=== PATIENT | female | born 1970 | race Caucasian/White ===

== ENCOUNTER 2019-01-13 18:48 | Inpatient (IN) ==
[2019-01-13 19:27] LABS: Bilirubin,Urine Negative (Negative); Blood,Urine Negative (Negative); Clarity,Urine Clear (Clear); Color,Urine Yellow (Yellow); Glucose,Urine (UA) Normal (Normal); Ketones,Urine Trace mg/dL (Negative); Leukocyte Esterase,Urine Negative (Negative); Nitrite,Urine Negative (Negative); Protein,Urine Trace mg/dL (Neg-Trace); Specific Gravity,Urine 1.027 (1.010-1.025); Urobilinogen,Urine Normal (Normal)
[2019-01-13] MEDS ORDERED: 0.9 % Sodium Chloride 1,000 ML IVC ONE (19:45)
[2019-01-13] MEDS ORDERED: Ondansetron 4 MG/2 ML VIAL IVP ONE (19:45)
[2019-01-13] MEDS ORDERED: *HR* FentaNYL (PF) 100 MCG/2 ML VIAL IVP ONE (19:51)
--- NOTE | 2019-01-13 19:54 | Emergency Department Note ---
Disposition Clinical Impression: Ileus, postoperative, Nausea alone Disposition: Admitted As Inpatient Condition: Undetermined Referrals: Jesi Steward CNP [Primary Care Provider] - Forms: ED Satisfaction Letter, Work/School Release Time of Disposition: 22:05 Abdominal Pain HPI - General Chief Complaint: ED Abdominal Pain Stated Complaint: ABD Pain,S/P Sinus Surgery Time Seen by Provider: 01/13/19 19:29 Source: patient Mode of arrival: ambulatory Limitations: no limitations Nursing Notes Reviewed: Yes Vital Signs Reviewed: Yes - History of Present Illness HPI Narrative: 48-year-old female with history of partial colectomy and J pouch arrives to the emergency department 3 days status post sinus surgery who arrives to the emergency department complaining of worsening abdominal pain. The patient states that she has had a similar episode like this in the past and had a anesthesia-induced ileus. The patient states that she is had only one liquid bowel movement since her surgery. Patient is had numerous episodes of nausea and only one episode of vomiting. The patient is very uncomfortable on evaluation the room with a very tender abdomen. It is not rigid and is still soft but she is exquisitely tender. It is not pain out of proportion the patient has no rigidity, rebound or guarding noted. Patient is a very large midline scar in her abdomen secondary to her J pouch. Pain Scale: 10 - Related Data Home Medications Medication Instructions Recorded Confirmed Fluticasone Propionate Nasal 2 spr NS BID PRN 10/11/18 01/13/19 [Flonase] Montelukast [Singulair] 10 mg PO DAILY 10/11/18 01/13/19 Previous Rx's Medication Instructions Recorded Amoxicillin [Amoxil] 500 mg PO BID #14 capsule 01/11/19 HYDROcodone/Acet 5/325 mg [[place] 1 tab PO Q6H PRN 3 Days #10 tab 01/11/19 5-325 mg] Allergies Allergy/AdvReac Type Severity Reaction Status Date / Time No Known Allergies Allergy Verified 01/13/19 19:49 All systems ED: reviewed and negative except as stated. Constitutional: Reports: chills. Denies: fever, weakness ENT ED: Denies: dysphagia Cardiovascular: Denies: chest pain Respiratory: Denies: dyspnea Gastrointestinal: Reports: abdominal pain, nausea, vomiting, diarrhea. Denies: constipation, hematemesis, melena, hematochezia Genitourinary: Denies: urgency, dysuria, hematuria Musculoskeletal: Denies: back pain Integumentary: Denies: rash Neurological: Denies: headache Abdominal Pain PMH - Past Medical History Medical history: Reports: other Female Surgical History: Reports: colectomy, other (J pouch) Psychiatric history: Reports: depression - Social History Smoking status: Never smoker Alcohol use: Reports: none Drug use: Reports: none Physical Exam - General Limitations: no limitations General appearance: alert, in distress (secondary to pain) - Head Head exam: atraumatic, normocephalic, normal inspection - Eye Eye exam: Present: normal appearance, PERRL, EOMI - ENT ENT exam: normal exam, normal oropharynx, mucous membranes moist - Neck Neck exam: Present: normal inspection, full ROM, trachea midline - Chest Chest inspection: Present: normal inspection, symmetric chest wall rise - Respiratory Respiratory exam: Present: normal lung sounds bilaterally - Cardiovascular Cardiovascular exam: Present: regular rate, normal rhythm, normal heart sounds - Abdominal Exam Abdominal exam: Present: soft, tenderness (diffuse), distention, scar. Absent: guarding, rebound, rigidity, Hammer's sign, Rovsing's sign, tenderness at McBurney's Point - Extremities Exam Extremities exam: Present: normal inspection, full ROM, normal capillary refill. Absent: tenderness, pedal edema - Neurological Exam Neurological exam: Present: alert, oriented X3 - Skin Skin exam: Present: warm, dry, intact, normal color Course - Consultations Consultation #1: I spoke with Dr. Pierre in general surgery who is on-call he felt as though this patient likely just has an ileus given the patient having still having some diarrhea. The patient is still expressing decent amount of pain at this time and given the patient's pain combined with concern for ileus versus small bowel obstruction, we will admit the patient to the hospital for further observation and care. General surgery also noted that given the dilation it can be a normal finding secondary to J-pouch surgery. Patient was made aware and is otherwise in the room at this time. Patient will be admitted to the hospital. Time: 21:52 Vital Signs Temperature 98.3 F 01/13/19 18:52 Pulse Rate 95 01/13/19 18:52 Respiratory Rate 18 01/13/19 18:52 Blood Pressure 152/98 01/13/19 18:52 O2 Sat by Pulse Oximetry 98 01/13/19 18:52 Temperature 98.3 F 01/13/19 19:53 Pulse Rate 90 01/13/19 19:53 Respiratory Rate 20 01/13/19 19:53 Blood Pressure 144/93 01/13/19 19:53 O2 Sat by Pulse Oximetry 100 01/13/19 19:53 Oxygen Delivery Oxygen Delivery Room Air Abdominal Pain - MDM Narrative Medical decision making narrative: Accepted by Dr. Sung. - Lab Data Lab results reviewed: Yes I reviewed the patient's lab results. Result diagrams: 01/13/19 18:56 01/13/19 18:56 Lab Results 01/13/19 01/13/19 01/13/19 Range/Units 18:56 18:56 19:08 WBC 12.2 H (4.3-11.1) K/mcL RBC 4.93 (3.82-4.97) M/mcL Hgb 13.9 (11.5-15.4) g/dL Hct 42.7 (35.3-44.9) % MCV 86.6 (83.0-100.0) fL MCH 28.2 (28.0-33.3) pg MCHC 32.6 (31.6-35.5) g/dL RDW 14.2 (11.5-14.5) % Plt Count 314 (140-400) K/mcL MPV 9.2 L (9.4-12.4) fL Immature Gran % 0.2 (0-4) % Seg Neutrophils % 74.6 % Lymphocytes % 17.1 % Monocytes % 5.8 % Eosinophils % 1.6 % Basophils % 0.7 % Neutrophils # 9.1 H (1.6-8.9) K/mcL Lymphocytes # 2.1 (0.6-4.6) K/mcL Monocytes # 0.7 (0.0-1.3) K/mcL Eosinophils # 0.2 (0.0-0.6) K/mcL Basophils # 0.1 (0.0-0.2) K/mcL Sodium 140 (136-145) mEq/L Potassium 3.8 (3.5-5.1) mEq/L Chloride 100 (98-107) mEq/L Carbon Dioxide 27 (23-29) mEq/L BUN 9 (6-20) mg/dL Creatinine 0.55 L (0.60-1.20) mg/dL Est GFR ( Amer) > 60 (> 60) Est GFR (Non-Af Amer) > 60 (> 60) BUN/Creatinine Ratio 16 (6-26) Glucose 125 H (70-105) mg/dL Calculated Osmolality 290 (280-300) Calcium 10.1 (8.6-10.3) mg/dL Total Bilirubin 0.7 (0.3-1.0) mg/dL Direct Bilirubin 0.1 (0.0-0.2) mg/dL Indirect Bilirubin 0.6 (0.0-1.2) mg/dL AST 40 H (13-39) Units/L ALT 54 H (7-52) Units/L Alkaline Phosphatase 77 (34-104) Units/L Serum Total Protein 7.6 (6.4-8.9) g/dL Albumin 4.6 (3.5-5.7) g/dL Globulin 3.0 (2.4-3.5) g/dL Albumin/Globulin Ratio 1.5 (1.1-2.2) Lipase 5 L (11-82) Units/L Urine Color Yellow (Yellow) Urine Clarity Clear (Clear) Urine pH 7.0 (5.0-8.0) pH Units Ur Specific [place] 1.027 H (1.010-1.025) Urine Protein Trace (Neg-Trace) mg/dL Urine Glucose (UA) Normal (Normal) mg/dL Urine Ketones Trace H (Negative) mg/dL Urine Blood Negative (Negative) Urine Nitrite Negative (Negative) Urine Bilirubin Negative (Negative) Urine Urobilinogen Normal (Normal) mg/dL Ur Leukocyte Esterase Negative (Negative) Ur Culture Indicated? NO (NO) - Radiology Data Radiology results reviewed: Yes I reviewed the patient's radiology results. Abdomen/Pelvis CT 01/13/19 19:45 IMPRESSION: 1. Postoperative changes of colectomy. Findings are suspicious for a partial distal small-bowel obstruction. 2. Trace ascites and mild mesenteric edema, which is nonspecific. 3. Urine in the bladder appears hyperdense, which can be seen with hematuria. D/ / 01/13/2019 21:47:23 Dada Vizcaino MD / marilyn Interpreting Provider: Dada Vizcaino MD Chest X-Ray 01/13/19 20:49 IMPRESSION: No acute cardiopulmonary disease. D/ / Robbin Parmar MD / Robbin Parmar MD Interpreting Provider: Robbin Pramar MD - EKG Data EKG attestation: Yes I reviewed and interpreted this EKG. EKG results narrative: Heart rate 73 beats for minute. Normal sinus rhythm. No ST elevation or ST depression noted. No acute changes noted. Attestation Statement - Attestation Attestation: I, Vance Navas DO, examined this patient [id number] and my medical decision-making was reviewed with Lorraine Guillaume DO, Resident Physician. I agree with the documented findings, disposition and treatment plan as described except to the extent set forth below. I personally supervised and was present for the bills/critical portions of the procedures completed by the resident documented below. Please see my progress notes for details.
[2019-01-13 20:14] LABS: Basophils # 0.1 K/mcL (0.0-0.2); Basophils % 0.7 %; Eosinophils # 0.2 K/mcL (0.0-0.6); Eosinophils % 1.6 %; Hematocrit 42.7 % (35.3-44.9); Hemoglobin 13.9 g/dL (11.5-15.4); Immature Granulocytes % 0.2 % (0-4); Lymphocytes # 2.1 K/mcL (0.6-4.6); Lymphocytes % 17.1 %; Mean Corpuscular HGB Conc 32.6 g/dL (31.6-35.5); Mean Corpuscular Hemoglobin 28.2 pg (28.0-33.3); Mean Corpuscular Volume 86.6 fL (83.0-100.0); Mean Platelet Volume 9.2 fL (9.4-12.4); Monocytes # 0.7 K/mcL (0.0-1.3); Monocytes % 5.8 %; Neutrophils # 9.1 K/mcL (1.6-8.9); Platelet Count 314 K/mcL (140-400); Red Blood Count 4.93 M/mcL (3.82-4.97); Red Cell Distribution Width 14.2 % (11.5-14.5); Segmented Neutrophils % 74.6 %
[2019-01-13 20:37] LABS: Alanine Aminotransferase 54 Units/L (7-52); Albumin 4.6 g/dL (3.5-5.7); Albumin/Globulin Ratio 1.5 (1.1-2.2); Alkaline Phosphatase 77 Units/L (34-104); Aspartate Amino Transferase 40 Units/L (13-39); BUN/Creatinine Ratio 16 (6-26); Bilirubin,Direct 0.1 mg/dL (0.0-0.2); Bilirubin,Indirect 0.6 mg/dL (0.0-1.2); Bilirubin,Total 0.7 mg/dL (0.3-1.0); Blood Urea Nitrogen 9 mg/dL (6-20); Calcium 10.1 mg/dL (8.6-10.3); Carbon Dioxide 27 mEq/L (23-29); Chloride 100 mEq/L (98-107); Glucose 125 mg/dL (70-105); Lipase 5 Units/L (11-82); Osmolality,Calculated 290 (280-300); Potassium 3.8 mEq/L (3.5-5.1); Sodium 140 mEq/L (136-145); Total Protein 7.6 g/dL (6.4-8.9); eGFR For Non-African Americans > 60 (> 60)
--- NOTE | 2019-01-13 20:40 | Emergency Department Note ---
Disposition Clinical Impression: Ileus, postoperative, Nausea alone, Abdominal pain Disposition: Admitted As Inpatient Condition: Fair Referrals: Jesi Steward CNP [Primary Care Provider] - Forms: ED Satisfaction Letter, Work/School Release Time of Disposition: 22:15 General Adult HPI - General Chief complaint: ED Abdominal Pain Stated complaint: ABD Pain,S/P Sinus Surgery Time Seen by Provider: 01/13/19 19:29 Source: patient Mode of arrival: ambulatory Limitations: no limitations - History of Present Illness Pain Scale: 9 - Related Data Home Medications Medication Instructions Recorded Confirmed Fluticasone Propionate Nasal 2 spr NS BID PRN 10/11/18 01/13/19 [Flonase] Montelukast [Singulair] 10 mg PO DAILY 10/11/18 01/13/19 Previous Rx's Medication Instructions Recorded Amoxicillin [Amoxil] 500 mg PO BID #14 capsule 01/11/19 HYDROcodone/Acet 5/325 mg [[place] 1 tab PO Q6H PRN 3 Days #10 tab 01/11/19 5-325 mg] Allergies Allergy/AdvReac Type Severity Reaction Status Date / Time No Known Allergies Allergy Verified 01/13/19 19:49 Constitutional: Reports: chills. Denies: fever, weakness ENT ED: Denies: dysphagia Cardiovascular: Denies: chest pain Respiratory: Denies: dyspnea Gastrointestinal: Reports: abdominal pain, nausea, vomiting, diarrhea. Denies: constipation, hematemesis, melena, hematochezia Genitourinary: Denies: urgency, dysuria, hematuria Musculoskeletal: Denies: back pain Integumentary: Denies: rash Neurological: Denies: headache Past Medical History - Past Medical History Medical history: Reports: other Surgical history: Reports: hysterectomy, other Psychiatric history: Reports: depression - Social History Smoking Status: Never smoker Smokeless Tobacco Status: No Alcohol use: Reports: none Drug use: Reports: none Physical Exam - General Limitations: no limitations General appearance: alert, in distress (secondary to pain) Course Vital Signs Temperature 98.3 F 01/13/19 18:52 Pulse Rate 95 01/13/19 18:52 Respiratory Rate 18 01/13/19 18:52 Blood Pressure 152/98 01/13/19 18:52 O2 Sat by Pulse Oximetry 98 01/13/19 18:52 Temperature 98.3 F 01/13/19 19:53 Pulse Rate 90 01/13/19 19:53 Respiratory Rate 20 01/13/19 19:53 Blood Pressure 144/93 01/13/19 19:53 O2 Sat by Pulse Oximetry 100 01/13/19 19:53 Oxygen Delivery Oxygen Delivery Room Air Medical Decision Making - Lab Data Result diagrams: 01/13/19 18:56 01/13/19 18:56 Lab Results 01/13/19 01/13/19 01/13/19 Range/Units 18:56 18:56 19:08 WBC 12.2 H (4.3-11.1) K/mcL RBC 4.93 (3.82-4.97) M/mcL Hgb 13.9 (11.5-15.4) g/dL Hct 42.7 (35.3-44.9) % MCV 86.6 (83.0-100.0) fL MCH 28.2 (28.0-33.3) pg MCHC 32.6 (31.6-35.5) g/dL RDW 14.2 (11.5-14.5) % Plt Count 314 (140-400) K/mcL MPV 9.2 L (9.4-12.4) fL Immature Gran % 0.2 (0-4) % Seg Neutrophils % 74.6 % Lymphocytes % 17.1 % Monocytes % 5.8 % Eosinophils % 1.6 % Basophils % 0.7 % Neutrophils # 9.1 H (1.6-8.9) K/mcL Lymphocytes # 2.1 (0.6-4.6) K/mcL Monocytes # 0.7 (0.0-1.3) K/mcL Eosinophils # 0.2 (0.0-0.6) K/mcL Basophils # 0.1 (0.0-0.2) K/mcL Sodium 140 (136-145) mEq/L Potassium 3.8 (3.5-5.1) mEq/L Chloride 100 (98-107) mEq/L Carbon Dioxide 27 (23-29) mEq/L BUN 9 (6-20) mg/dL Creatinine 0.55 L (0.60-1.20) mg/dL Est GFR ( Amer) > 60 (> 60) Est GFR (Non-Af Amer) > 60 (> 60) BUN/Creatinine Ratio 16 (6-26) Glucose 125 H (70-105) mg/dL Calculated Osmolality 290 (280-300) Calcium 10.1 (8.6-10.3) mg/dL Total Bilirubin 0.7 (0.3-1.0) mg/dL Direct Bilirubin 0.1 (0.0-0.2) mg/dL Indirect Bilirubin 0.6 (0.0-1.2) mg/dL AST 40 H (13-39) Units/L ALT 54 H (7-52) Units/L Alkaline Phosphatase 77 (34-104) Units/L Serum Total Protein 7.6 (6.4-8.9) g/dL Albumin 4.6 (3.5-5.7) g/dL Globulin 3.0 (2.4-3.5) g/dL Albumin/Globulin Ratio 1.5 (1.1-2.2) Lipase 5 L (11-82) Units/L Urine Color Yellow (Yellow) Urine Clarity Clear (Clear) Urine pH 7.0 (5.0-8.0) pH Units Ur Specific [place] 1.027 H (1.010-1.025) Urine Protein Trace (Neg-Trace) mg/dL Urine Glucose (UA) Normal (Normal) mg/dL Urine Ketones Trace H (Negative) mg/dL Urine Blood Negative (Negative) Urine Nitrite Negative (Negative) Urine Bilirubin Negative (Negative) Urine Urobilinogen Normal (Normal) mg/dL Ur Leukocyte Esterase Negative (Negative) Ur Culture Indicated? NO (NO) Attestation Statement - Attestation Attestation: I, Vance Navas DO, examined this patient [id number] and my medical decision-making was reviewed with Lorraine Guillaume DO, Resident Physician. I agree with the documented findings, disposition and treatment plan as described except to the extent set forth below. I personally supervised and was present for the bills/critical portions of the procedures completed by the resident documented below. Please see my progress notes for details. 48-year-old female presents emergency room for evaluation of diffuse abdominal pain. Patient has had pain and symptoms for approximately 24 hours. She did have a nasal procedure performed more she went under general anesthetic several days ago. She has a history of having post anesthetic induced ileus. Patient has required hospitalization secondary to decreased stool output as well as possible obstruction. She denies any falls trauma or injury. Currently denying fevers or chills. She has had nausea but no vomiting. Denies any headache or vision change. She does not have any chest pain or shortness of breath. Nasal surgery appears to be intact with no complications. Head is atraumatic. Patient is a headache at this time secondary to the pain and discomfort. Oropharynx is patent. Trachea is midline. Bilateral nostrils appear to be stable no signs of septal hematoma or infection or abnormality. Lungs are c lear. Heart is regular. Abdomen is soft but she does have tenderness. No point tenderness guarding or rigidity noted. No peritoneal symptoms. Patient denies any vaginal discharge or bleeding. Denies any changes in her bowel output outside of she has had decreased stooling over the last several days. Patient will be provided with fluids pain medication nausea medication here. EKG chest x-ray and CT imaging of the abdomen will be collected. Screening labs will also be ordered. Disposition pending full workup and treatment course. Patient is otherwise clinically stable. 2200 CT read is concerning for ileus versus partial small bowel traction. The on- call surgeon Dr. Pierre reviewed the case and agreed with the described presentation. He does not feel a surgical consult is needed this point considering the patient is not having profound emesis in the CT imaging does not show any acute signs of obstruction at this point. He is happy for reconsultation in the inpatient setting at the patient has change in the presentation. The hospitalist Dr. hammond reviewed the case. No other questions or concerns are noted this time. Patient will be admitted for monitoring. He understands the patient does not have a nasogastric tube secondary to lack of symptoms as well as the most recent rhinoplasty completed by the urinalysis and throat physician. Patient is otherwise clinically stable and monitored here in the emergency department until admission process is completed. Pain medication as been provided as well secondary the patient's discomfort. Escalating doses have been provided.
[2019-01-13] MEDS ORDERED: *HR* Morphine 2 MG/ML SYRINGE IVP ONE (21:44)
[2019-01-14] MEDS ORDERED: Naloxone 0.4 MG/ML INJ IVP PRN ×2 (00:49→04:56)
[2019-01-14] MEDS ORDERED: OXYCODONE Oral CONC 10 MG/0.5 ML ORAL.SYG SL PRN (00:49)
[2019-01-14] MEDS: OXYCODONE Oral CONC 10 MG/0.5 ML ORAL.SYG SL PRN ×2 (00:57→05:18)
[2019-01-14] MEDS ORDERED: Albuterol 2.5 MG/3 ML NEBULIZER IH PRN (05:00)
[2019-01-14] MEDS: 0.9 % Sodium Chloride w KCl 20 MEQ/1,000 ML MLS IVC SCH ×2 (05:22→15:02)
[2019-01-14] MEDS: *HR* Heparin 5,000 UNIT/ML VIAL SQ SCH ×2 (05:22→18:09)
[2019-01-14] MEDS: Ampicillin/Sulbactam 1,500 MG in 0.9 % Sodium Chloride Mini Bag 100 ML IVPB SCH ×3 (05:22→18:10)
--- NOTE | 2019-01-14 05:44 | Internal Med History&Physical ---
Date of Encounter: 01/14/19 Time of Encounter: 04:55 Internal Medicine - H&P: HPI Chief complaint: abdominal pain, nausea Admitted From: Emergency Dept Plans for Post Hospital Care: Home History of present illness: Ms. Lyon is a 48 year old female who presents the ER with complaints of abdominal pain, distention, and protracted nausea with occasional vomiting. Symptoms started shortly after she had surgery 2 days ago on her sinuses. She often has postoperative ileus and/or obstruction after anesthesia. She the refore came to the ER where she was diagnosed with partial small bowel obstruction versus ileus. She was unable to receive an NG tube due to sinus surgery. She was therefore admitted to hospitalist service with consultation from surgery. Upon my assessment of the patient, she is complaining of pain and distention of abdomen. She has had some nausea, belching, and one bout of emesis since admis courtney. She is not passing any flatus. She did have 1 small little liquid stool earlier. She denies any fevers, chills or night sweats. Past Med Surg Social Fam HX - Past Medical History Attestation: Yes The following information was validated with the patient. Source: patient, old records reviewed Medical history: other Additional medical history: ulcerative colitis. depression. fatigue. pneumonia. chronic maxillary sinusitis. obstructive sleep apnea Psychiatric history: depression - Past Surgical History Surgical History: hysterectomy Additional surgical history: colectomy with J pouch. wisdom teeth. si joint fusion - Social History Smoking Status: Never smoker Smokeless Tobacco Status: No Alcohol use: none Drug use: none Current living situation: Home, With Family Activity Level: Independent ambulation Recent Out of Country Travel Within the Last 8 Weeks: No - Family History Mother Living Status: Still Living Hx Family GI Disorders: Yes (Ulcerative Colitis) Internal Medicine - H&P: Meds Fluticasone Propionate Nasal [Flonase] 1 spr NS BID PRN 10/11/18 [History] Montelukast [Singulair] 10 mg PO DAILY 10/11/18 [History] Amoxicillin [Amoxil] 500 mg PO BID #14 capsule 01/11/19 [Rx] Allergy/AdvReac Type Severity Reaction Status Date / Time No Known Allergies Allergy Verified 01/13/19 22:26 - Constitutional Constitutional: no chills, no fever(s), no night sweats - EENT Eyes: no blurry vision, no change in vision Ears: no ear pain, no tinnitus Nose, mouth and throat: no nasal congestion, no sinus pressure, no sore throat - Cardiovascular Cardiovascular ROS IM: no chest pain, no dyspnea - Respiratory Respiratory: no cough, no dyspnea, no wheezing, no chest congestion - Gastrointestinal Gastrointestinal: abdominal pain, belching, bloating, nausea, vomiting, no hematemesis, no hematochezia, no melena - Genitourinary Genitourinary: no dysuria, no flank pain, no hematuria - Musculoskeletal Musculoskeletal ROS IM: no arthralgias, no back pain - Integumentary Integumentary IM: no rash, no jaundice - Neurological Neurological ROS: no dizziness, no focal weakness, no frequent falls - Psychiatric Psychiatric: no anxiety, no depression - Endocrine Endocrine IM: no cold intolerance, no heat intolerance, no polydipsia, no polyuria - Allergic/Immunologic Allergic/Immunologic: no GI upset with certain foods - Constitutional Vitals: Temp Pulse Resp BP Pulse Ox 99.6 F 86 18 118/75 96 01/14/19 03:13 01/14/19 03:13 01/14/19 03:13 01/14/19 03:13 01/14/19 03:13 General appearance: Present: cooperative, mild distress, A&O X 3, pleasant, answers questions appropriately Exam: see below - Head Head exam: Present: atraumatic, normal inspection - Eye Eye exam: Present: EOMI, PERRL. Absent: scleral icterus Pupils: Present: normal accommodation - ENT ENT exam: Present: mucous membranes dry, normal exam, normal oropharynx - Neck Neck exam general surgery: Present: full ROM, supple, trachea midline. Absent: lymphadenopathy, tenderness, nuchal rigidity, thyromegaly - Respiratory Respiratory exam: Present: CTAB. Absent: chest wall tenderness, rales, rhonchi, wheezes - Cardiovascular Cardiovascular exam: Present: RRR, +S1, +S2. Absent: diastolic murmur, systolic murmur - GI/Abdominal GI/Abdominal exam: Present: distended, hypoactive bowel sounds, tenderness, no peritoneal signs. Absent: guarding, rebound Additional comments: midline surgical scar -- from old colectomy - Extremities Exam Extremities exam: Present: full ROM, normal capillary refill, warm, radial pulses palpable and symmetrical. Absent: calf tenderness, pedal edema, tenderness - Back Exam Back exam: Absent: CVA tenderness (L), CVA tenderness (R) - Neurological Exam Neurological exam: Present: alert, oriented X3, no focal deficits, strengths equal and symetr throughout - Skin Skin exam: Present: dry, intact, warm Internal Med - H&P Results - Labs CBC & Chem 7: 01/13/19 18:56 01/13/19 18:56 Labs: Short CBC 01/13/19 Range/Units 18:56 WBC 12.2 H (4.3-11.1) K/mcL Hgb 13.9 (11.5-15.4) g/dL Hct 42.7 (35.3-44.9) % Plt Count 314 (140-400) K/mcL Neutrophils # 9.1 H (1.6-8.9) K/mcL BMP 01/13/19 18:56 Sodium 140 Potassium 3.8 Chloride 100 Carbon Dioxide 27 BUN 9 Creatinine 0.55 L Glucose 125 H Calcium 10.1 Liver Function 01/13/19 Range/Units 18:56 Total Bilirubin 0.7 (0.3-1.0) mg/dL Direct Bilirubin 0.1 (0.0-0.2) mg/dL AST 40 H (13-39) Units/L ALT 54 H (7-52) Units/L Alkaline Phosphatase 77 (34-104) Units/L Albumin 4.6 (3.5-5.7) g/dL Urine 01/13/19 Range/Units 19:08 Urine Color Yellow (Yellow) Urine Clarity Clear (Clear) Urine pH 7.0 (5.0-8.0) pH Units Ur Specific [place] 1.027 H (1.010-1.025) Urine Protein Trace (Neg-Trace) mg/dL Urine Glucose (UA) Normal (Normal) mg/dL - Impressions ITS Impressions Abdomen/Pelvis CT 01/13/19 19:45 IMPRESSION: 1. Postoperative changes of colectomy. Findings are suspicious for a partial distal small-bowel obstruction. 2. Trace ascites and mild mesenteric edema, which is nonspecific. 3. Urine in the bladder appears hyperdense, which can be seen with hematuria. D/ / 01/13/2019 21:47:23 Dada Vizcaino MD / earnold Interpreting Provider: Dada Vizcaino MD Chest X-Ray 01/13/19 20:49 IMPRESSION: No acute cardiopulmonary disease. D/ / Robbin Parmar MD / Robbin Parmar MD Interpreting Provider: Robbin Parmar MD - Diagnostic Studies CT scan - abdomen Status: image reviewed by me - Assessment and Plan (1) Ileus, postoperative Current Visit: Yes Status: Acute Assessment and plan: 1. Will keep npo. 2. IVF, pain control PRN, anti-emetic PRN. 3. Consult surgery. 4. Patient unable to have NG tube placement due to sinus surgery 2 days ago. If needs decompression, consider OG tube. (2) S/P sinus surgery Current Visit: Yes Status: Acute Assessment and plan: 1. Will place on Unasyn IV for nasopharygneal coverage post-op. 2. ENT follow up outpatient. (3) DVT prophylaxis Current Visit: Yes Status: Acute Assessment and plan: 1. Heparin SQ.
[2019-01-14] MEDS ORDERED: Pantoprazole 40 MG VIAL IVP SCH (06:00)
[2019-01-14] MEDS: *HR* FentaNYL (PF) 100 MCG/2 ML VIAL IVP PRN ×3 (06:10→22:35)
--- NOTE | 2019-01-14 08:01 | AcuteCare Surgery Consult Note ---
<Drayl Dodge N - Last Filed: 01/14/19 09:12> Date of Encounter: 01/14/19 Time of Encounter: 07:59 Assessment and Plan (1) Ileus, postoperative Current Visit: Yes Status: Acute -48-year-old female with a history of UC s/p colectomy with J pouch admitted with postoperative ileus -Patient has abdominal pain and tenderness on exam -Recommend increasing pain control regimen, added toradol IV Q6H -NG tube contraindicated due to recent sinus surgery -Recommend expectant management, continue IVF and maintain NPO History of Present Illness Consult date: 01/14/19 History of present illness: Patient is a 48-year-old female with a history of ulcerative colitis status post colectomy and J-pouch who presents 2 days after sinus surgery. Patient reports a history of ileus/SBO after general anesthesia from surgery in the past. The day after her sinus surgery patient reports nausea and generalized abdominal pain, no vomiting. Patient presented to the emergency department and a CT abdomen and pelvis had findings suspicious for a partial distal small bowel obstruction. Patient was admitted to the hospital. An NG tube was not placed due to recent history of sinus surgery. Since admission patient reports nausea that is better controlled with antiemetic, but continues to have abdominal pain pain. No vomiting since admission. Past Med Surg Social Fam HX - Past Medical History Medical history: other Additional medical history: ulcerative colitis. depression. fatigue. pneu monia. chronic maxillary sinusitis. obstructive sleep apnea Psychiatric history: depression - Past Surgical History Surgical History: hysterectomy Additional surgical history: colectomy with J pouch. wisdom teeth. si joint fusion - Social History Smoking Status: Never smoker Smokeless Tobacco Status: No Alcohol use: none Drug use: none - Family History Mother Living Status: Still Living Hx Family GI Disorders: Yes (Ulcerative Colitis) Medications and Allergies Fluticasone Propionate Nasal [Flonase] 1 spr NS BID PRN 10/11/18 [History] Montelukast [Singulair] 10 mg PO DAILY 10/11/18 [History] Amoxicillin [Amoxil] 500 mg PO BID #14 capsule 01/11/19 [Rx] Allergy/AdvReac Type Severity Reaction Status Date / Time No Known Allergies Allergy Verified 01/13/19 22:26 Review of Systems All systems PM: The remainder of the systems were reviewed and are negative - Constitutional no chills, no fever(s) - Cardiovascular no chest pain - Respiratory no dyspnea - Gastrointestinal abdominal pain, nausea, no diarrhea, no vomiting - Genitourinary Genitourinary: no dysuria - Integumentary no rash General Surgery Exam Initial Vital Signs Temp Pulse Resp BP Pulse Ox 98.3 F 95 18 152/98 98 01/13/19 18:52 01/13/19 18:52 01/13/19 18:52 01/13/19 18:52 01/13/19 18:52 - General physical appearance well developed, well nourished - Eyes PERRL, normal ocular movement - ENT normal pinna, normal nares - Neck trachea midline, no venous distension - Respiratory normal expansion, normal respiratory effort, clear to auscultation - Cardiovascular Cardiovascular exam: Present: RRR - Abdomen Abdomen general surgery: Present: soft, tender (Mild tenderness to palpation without guarding or rigidity). Absent: rebound - Integumentary Integumentary general surgery: Present: warm and dry - Musculoskeletal Present: normal posture - Psychiatric Psychiatric general surgery: Present: A&Ox3, appropriate Exam Initial Vital Signs Temp Pulse Resp BP Pulse Ox 98.3 F 95 18 152/98 98 01/13/19 18:52 01/13/19 18:52 01/13/19 18:52 01/13/19 18:52 01/13/19 18:52 Results - Labs 01/13/19 18:56 01/13/19 18:56 Abnormal lab results WBC 12.2 K/mcL (4.3-11.1) H 01/13/19 18:56 MPV 9.2 fL (9.4-12.4) L 01/13/19 18:56 9.1 K/mcL (1.6-8.9) H 01/13/19 18:56 0.55 mg/dL (0.60-1.20) L 01/13/19 18:56 Glucose 125 mg/dL (70-105) H 01/13/19 18:56 AST 40 Units/L (13-39) H 01/13/19 18:56 ALT 54 Units/L (7-52) H 01/13/19 18:56 5 Units/L (11-82) L 01/13/19 18:56 Ur Specific [place] 1.027 (1.010-1.025) H 01/13/19 19:08 Trace mg/dL (Negative) H 01/13/19 19:08 Diabetes panel 01/13/19 Range/Units 18:56 Sodium 140 (136-145) mEq/L Potassium 3.8 (3.5-5.1) mEq/L Chloride 100 (98-107) mEq/L Carbon Dioxide 27 (23-29) mEq/L BUN 9 (6-20) mg/dL Creatinine 0.55 L (0.60-1.20) mg/dL Glucose 125 H (70-105) mg/dL Calcium 10.1 (8.6-10.3) mg/dL AST 40 H (13-39) Units/L ALT 54 H (7-52) Units/L Alkaline Phosphatase 77 (34-104) Units/L Albumin 4.6 (3.5-5.7) g/dL Calcium panel 01/13/19 Range/Units 18:56 Calcium 10.1 (8.6-10.3) mg/dL Albumin 4.6 (3.5-5.7) g/dL Pituitary panel 01/13/19 Range/Units 18:56 Sodium 140 (136-145) mEq/L Potassium 3.8 (3.5-5.1) mEq/L Chloride 100 (98-107) mEq/L Carbon Dioxide 27 (23-29) mEq/L BUN 9 (6-20) mg/dL Creatinine 0.55 L (0.60-1.20) mg/dL Glucose 125 H (70-105) mg/dL Calcium 10.1 (8.6-10.3) mg/dL Adrenal panel 01/13/19 Range/Units 18:56 Sodium 140 (136-145) mEq/L Potassium 3.8 (3.5-5.1) mEq/L Chloride 100 (98-107) mEq/L Carbon Dioxide 27 (23-29) mEq/L BUN 9 (6-20) mg/dL Creatinine 0.55 L (0.60-1.20) mg/dL Glucose 125 H (70-105) mg/dL Calcium 10.1 (8.6-10.3) mg/dL Total Bilirubin 0.7 (0.3-1.0) mg/dL AST 40 H (13-39) Units/L ALT 54 H (7-52) Units/L Alkaline Phosphatase 77 (34-104) Units/L Albumin 4.6 (3.5-5.7) g/dL All other labs normal. Consult Discharge Plan - Plan Referrals: Jesi Steward, OPERATIONAL COMMUNICATION CHIEF [Primary Care Provider] - <Woody Woodard Breanna - Last Filed: 01/14/19 17:55> Date of Encounter: 01/14/19 Review of Systems All systems PM: The remainder of the systems were reviewed and are negative General Surgery Exam Initial Vital Signs Temp Pulse Resp BP Pulse Ox 98.3 F 95 18 152/98 98 01/13/19 18:52 01/13/19 18:52 01/13/19 18:52 01/13/19 18:52 01/13/19 18:52 Exam Initial Vital Signs Temp Pulse Resp BP Pulse Ox 98.3 F 95 18 152/98 98 01/13/19 18:52 01/13/19 18:52 01/13/19 18:52 01/13/19 18:52 01/13/19 18:52 Results - Labs 01/13/19 18:56 01/13/19 18:56 Abnormal lab results WBC 12.2 K/mcL (4.3-11.1) H 01/13/19 18:56 MPV 9.2 fL (9.4-12.4) L 01/13/19 18:56 9.1 K/mcL (1.6-8.9) H 01/13/19 18:56 0.55 mg/dL (0.60-1.20) L 01/13/19 18:56 Glucose 125 mg/dL (70-105) H 01/13/19 18:56 AST 40 Units/L (13-39) H 01/13/19 18:56 ALT 54 Units/L (7-52) H 01/13/19 18:56 5 Units/L (11-82) L 01/13/19 18:56 Ur Specific [place] 1.027 (1.010-1.025) H 01/13/19 19:08 Trace mg/dL (Negative) H 01/13/19 19:08 Diabetes panel 01/13/19 Range/Units 18:56 Sodium 140 (136-145) mEq/L Potassium 3.8 (3.5-5.1) mEq/L Chloride 100 (98-107) mEq/L Carbon Dioxide 27 (23-29) mEq/L BUN 9 (6-20) mg/dL Creatinine 0.55 L (0.60-1.20) mg/dL Glucose 125 H (70-105) mg/dL Calcium 10.1 (8.6-10.3) mg/dL AST 40 H (13-39) Units/L ALT 54 H (7-52) Units/L Alkaline Phosphatase 77 (34-104) Units/L Albumin 4.6 (3.5-5.7) g/dL Calcium panel 01/13/19 Range/Units 18:56 Calcium 10.1 (8.6-10.3) mg/dL Albumin 4.6 (3.5-5.7) g/dL Pituitary panel 01/13/19 Range/Units 18:56 Sodium 140 (136-145) mEq/L Potassium 3.8 (3.5-5.1) mEq/L Chloride 100 (98-107) mEq/L Carbon Dioxide 27 (23-29) mEq/L BUN 9 (6-20) mg/dL Creatinine 0.55 L (0.60-1.20) mg/dL Glucose 125 H (70-105) mg/dL Calcium 10.1 (8.6-10.3) mg/dL Adrenal panel 01/13/19 Range/Units 18:56 Sodium 140 (136-145) mEq/L Potassium 3.8 (3.5-5.1) mEq/L Chloride 100 (98-107) mEq/L Carbon Dioxide 27 (23-29) mEq/L BUN 9 (6-20) mg/dL Creatinine 0.55 L (0.60-1.20) mg/dL Glucose 125 H (70-105) mg/dL Calcium 10.1 (8.6-10.3) mg/dL Total Bilirubin 0.7 (0.3-1.0) mg/dL AST 40 H (13-39) Units/L ALT 54 H (7-52) Units/L Alkaline Phosphatase 77 (34-104) Units/L Albumin 4.6 (3.5-5.7) g/dL All other labs normal. - Attending Attestation I examined this patient and my medical decision-making was reviewed with the Resident Physician. I agree with the documented findings, disposition and treatment plan as described except to the extent set forth below. I reviewed the above assessment and evaluation with the resident and agree with the above plan. Patient is a recent sinus surgery and has dilma pain with some mild distention. She says that she is had a little bit of watery stool. She is tender to palpation generalized on the abdomen with some tympany maintenance scant bowel sounds. I personally reviewed the CT scan images and report which shows evidence of an ileus. We cannot place an NG tube due to her sinus surgery. Will follow along but recommend IV fluid hydration and monitoring an nothing by mouth status. Over time this should resolve on its own.
[2019-01-14] MEDS ORDERED: *HR* FentaNYL (PF) 100 MCG/2 ML VIAL IVP ONE (08:10)
[2019-01-14] MEDS: Ondansetron 4 MG/2 ML VIAL IVP PRN ×2 (08:31→16:57)
--- NOTE | 2019-01-14 10:21 | Electrocardiograph Report ---
[address] [address] Test Date: 2019-01-13 Pat Name: Dora Lyon Department: EXAM4 Room: 2A43 Gender: F [employer] Dean: : 1970 Requested By: Vance Navas Order Number: [id number] Reading MD: Merlin Ruiz Measurements Intervals [place] Rate: 73 P: 55 HI: 153 QRS: 56 QRSD: 72 T: -13 QT: 366 QTc: 404 Interpretive Statements Sinus rhythm Borderline T abnormalities, diffuse leads Electronically Signed On 01-14-2019 10:20:07 EDT by Merlin Ruiz
[2019-01-14] MEDS: *HR* Promethazine 25 MG/ML VIAL IVP PRN ×2 (10:53→18:09)
[2019-01-14] MEDS: Ketorolac 30 MG/ML VIAL IVP SCH ×3 (11:08→23:33)
[2019-01-14] MEDS ORDERED: Methylnaltrexone 12 MG/0.6 ML SYRINGE SQ ONE (14:22)
--- NOTE | 2019-01-14 14:29 | Event Note ---
Date of Encounter: 01/14/19 Time of Encounter: 09:00 Patient was seen and examined at bedside. Continues to have abdominal pain, denies passing flatness or having a bowel movement. Pain is controlled with fentanyl, she was requesting more frequent pain medication. Was evaluated by surgical team and reports that they will adjust pain medications for her. Denies any sinus pain, has had no fever or chills. She is in moderate distress secondary to pain, morbidly obese Has a midline well-healed abdominal scar from previous surgery, bowel sounds are hypoactive, soft and tender to palpation in all quadrants. Assessment and plan Patient is a 48-year-old female with a history of ulcerative colitis status post colectomy and J-pouch who presents 2 days after sinus surgery with abodminal pain and was fpund to have post op ileus post op ileus: surgery onboard, continue NPO, IVF, replace electrolytes, pain control, encouraged ambulation, NG tube contraindicated due to recent sinus surgery S/P sinus surgery on Unasyn IV for nasopharygneal coverage post-op. ENT follow up outpatient. mordly obese BMI 44.3- was counseled, nutrition consult once she is able to tolerate PO intake. DVT prophylaxis: SC heaprin
[2019-01-15] MEDS: Ampicillin/Sulbactam 1,500 MG in 0.9 % Sodium Chloride Mini Bag 100 ML IVPB SCH ×5 (00:27→23:40)
[2019-01-15 04:57] LABS: Basophils % 0.5 %; Eosinophils # 0.2 K/mcL (0.0-0.6); Eosinophils % 3.7 %; Hematocrit 36.1 % (35.3-44.9); Immature Granulocytes % 0.2 % (0-4); Lymphocytes # 1.8 K/mcL (0.6-4.6); Lymphocytes % 27.6 %; Mean Corpuscular HGB Conc 32.1 g/dL (31.6-35.5); Mean Corpuscular Hemoglobin 28.2 pg (28.0-33.3); Mean Corpuscular Volume 87.8 fL (83.0-100.0); Mean Platelet Volume 9.3 fL (9.4-12.4); Monocytes # 0.7 K/mcL (0.0-1.3); Monocytes % 10.1 %; Neutrophils # 3.7 K/mcL (1.6-8.9); Platelet Count 253 K/mcL (140-400); Red Blood Count 4.11 M/mcL (3.82-4.97); Red Cell Distribution Width 14.3 % (11.5-14.5); Segmented Neutrophils % 57.9 %
[2019-01-15 05:00] LABS: Hemoglobin 11.6 g/dL (11.5-15.4)
[2019-01-15] MEDS: Ketorolac 30 MG/ML VIAL IVP SCH ×4 (05:12→23:42)
[2019-01-15] MEDS: *HR* Heparin 5,000 UNIT/ML VIAL SQ SCH ×2 (05:13→17:57)
[2019-01-15] MEDS: Pantoprazole 40 MG VIAL IVP SCH (05:13)
[2019-01-15 05:15] LABS: Alanine Aminotransferase 52 Units/L (7-52); Albumin 3.6 g/dL (3.5-5.7); Albumin/Globulin Ratio 1.6 (1.1-2.2); Alkaline Phosphatase 69 Units/L (34-104); Aspartate Amino Transferase 29 Units/L (13-39); BUN/Creatinine Ratio 22 (6-26); Bilirubin,Total 0.9 mg/dL (0.3-1.0); Blood Urea Nitrogen 9 mg/dL (6-20); Calcium 8.7 mg/dL (8.6-10.3); Carbon Dioxide 24 mEq/L (23-29); Chloride 108 mEq/L (98-107); Globulin 2.3 g/dL (2.4-3.5); Glucose 99 mg/dL (70-105); Magnesium 1.9 mg/dL (1.6-2.6); Osmolality,Calculated 289 (280-300); Phosphorous 3.1 mg/dL (2.7-4.5); Potassium 3.7 mEq/L (3.5-5.1); Sodium 140 mEq/L (136-145); Total Protein 5.9 g/dL (6.4-8.9); eGFR For Non-African Americans > 60 (> 60)
--- NOTE | 2019-01-15 12:33 | AcuteCareSurgery Progress Note ---
<MileybonillaDaryl N - Last Filed: 01/15/19 12:30> Date of Encounter: 01/15/19 Time of Encounter: 12:30 - Assessment and Plan (1) Ileus, postoperative Current Visit: Yes Status: Acute -48-year-old female with a history of UC s/p colectomy who recently underwent sinus surgery and subsequently admitted to the hospital with postoperative ileus -Unable to insert NG tube due to recent sinus surgery -Clinically patient is slightly improved from the previous day with better pain control -Reports passing gas and liquid stool -Continue expectant management, IV fluids, and bowel rest Subjective Narrative: Patient seen and examined at bedside today with acute care surgery team. She reports some improvement in abdominal pain with her current pain management regimen. Her pain is now more localized to the lower quadrants. She reports passing gas and some liquid stool. Objective Vital Signs - Last 8 Hours Temp Pulse Resp BP Pulse Ox 01/15/19 11:12 98.8 F 74 16 113/72 95 01/15/19 07:05 99.1 F 68 16 109/75 96 Intake and Output 01/14/19 01/15/19 01/15/19 23:59 07:59 15:59 Intake Total 100 / 1300 100 / 340 240 / 340 Balance 100 / 1100 100 / 340 240 / 340 Intake: IV Fluids 100 / 1300 100 / 100 Unasyn 1,500 mg In 0.9 % Sodium 100 / 300 100 / 100 Chloride (Mini-Bag +) 100 ML @ 200 mls/hr IVPB Q6HR [facility] Rx#: [id number] Oral 0 / 0 0 / 240 240 / 240 Other: Meal npo Stool Size Small Stool Consistency loose # Bowel Movements 1 Weight 117 kg Blood Glucose* 98 97 86 - General physical appearance well developed, well nourished - Eyes PERRL, normal ocular movement - ENT normal pinna, normal nares - Neck Neck exam: trachea midline, no venous distension - Respiratory normal expansion, normal respiratory effort - Cardiovascular Cardiovascular exam: Present: RRR - Abdomen Abdomen: Present: bowel sounds present, soft, tender (Mild tenderness to palpation of the lower quadrants) - Integumentary no rash - Musculoskeletal normal posture - Labs 01/15/19 04:19 01/15/19 04:19 Diabetes panel 01/15/19 Range/Units 04:19 Sodium 140 (136-145) mEq/L Potassium 3.7 (3.5-5.1) mEq/L Chloride 108 H (98-107) mEq/L Carbon Dioxide 24 (23-29) mEq/L BUN 9 (6-20) mg/dL Creatinine 0.41 L (0.60-1.20) mg/dL Glucose 99 (70-105) mg/dL Calcium 8.7 (8.6-10.3) mg/dL AST 29 (13-39) Units/L ALT 52 (7-52) Units/L Alkaline Phosphatase 69 (34-104) Units/L Albumin 3.6 (3.5-5.7) g/dL Calcium panel 01/15/19 Range/Units 04:19 Calcium 8.7 (8.6-10.3) mg/dL Phosphorus 3.1 (2.7-4.5) mg/dL Albumin 3.6 (3.5-5.7) g/dL Pituitary panel 01/15/19 Range/Units 04:19 Sodium 140 (136-145) mEq/L Potassium 3.7 (3.5-5.1) mEq/L Chloride 108 H (98-107) mEq/L Carbon Dioxide 24 (23-29) mEq/L BUN 9 (6-20) mg/dL Creatinine 0.41 L (0.60-1.20) mg/dL Glucose 99 (70-105) mg/dL Calcium 8.7 (8.6-10.3) mg/dL Adrenal panel 01/15/19 Range/Units 04:19 Sodium 140 (136-145) mEq/L Potassium 3.7 (3.5-5.1) mEq/L Chloride 108 H (98-107) mEq/L Carbon Dioxide 24 (23-29) mEq/L BUN 9 (6-20) mg/dL Creatinine 0.41 L (0.60-1.20) mg/dL Glucose 99 (70-105) mg/dL Calcium 8.7 (8.6-10.3) mg/dL Total Bilirubin 0.9 (0.3-1.0) mg/dL AST 29 (13-39) Units/L ALT 52 (7-52) Units/L Alkaline Phosphatase 69 (34-104) Units/L Albumin 3.6 (3.5-5.7) g/dL Consult Discharge Plan - Plan Referrals: Jesi Steward, INSIDE SALES PROFESSIONAL [Primary Care Provider] - <Woody Woodard - Last Filed: 01/16/19 06:33> Date of Encounter: 01/15/19 Objective Vital Signs - Last 8 Hours Temp Pulse Resp BP Pulse Ox 01/16/19 03:52 98.1 F 88 17 113/70 95 01/16/19 00:06 98.2 F 78 16 124/84 94 Intake and Output 01/15/19 01/15/19 01/16/19 15:59 23:59 07:59 Intake Total 340 / 2360 1820 / 2360 100 / 100 Output Total 400 / 400 Balance 340 / 1960 1420 / 1960 100 / 100 Intake: IV Fluids 100 / 1400 1100 / 1400 100 / 100 0.9 % Sodium Chloride 1,000 ML 1000 / 1000 @ 100 mls/hr IVC .Q10H [facility] Rx#: [id number] Unasyn 1,500 mg In 0.9 % Sodium 100 / 400 100 / 400 100 / 100 Chloride (Mini-Bag +) 100 ML @ 200 mls/hr IVPB Q6HR [facility] Rx#: [id number] Oral 240 / 960 720 / 960 Output: Urine 400 / 400 Other: Meal npo Dinner Percent of Meal Consumed 80% Weight 117 kg Blood Glucose* 86 97 Patient Weight 01/16/19 23:59 Weight 117 kg - Labs 01/15/19 04:19 01/15/19 04:19 - Attending Attestation I examined this patient and my medical decision-making was reviewed with the Resident Physician. I agree with the documented findings, disposition and treatment plan as described except to the extent set forth below. I reviewed the above assessment and evaluation and agree with the above plan. Patient does note some improvement in her symptoms are still has some abdominal pain. Past some liquids and some flatus. We will continue to recommend bowel rest and ice chips only at this time.
--- NOTE | 2019-01-15 12:58 | Internal Med Progress Note ---
Hospitalist Progress Note - Encounter Date of Encounter: 01/15/19 Time of Encounter: 09:00 - Subjective Interval History: Patient was seen and examined at bedside. Reports that her pain is more controlled, did have a bowel movement and was passing flatness and is inquiring about it. Denies any nausea, vomiting. Has had no chest pain or shortness of b reath. Denies fever, chills. - Exam Vitals: Temp Pulse Resp BP Pulse Ox 98.8 F 74 16 113/72 95 01/15/19 11:12 01/15/19 11:12 01/15/19 11:12 01/15/19 11:12 01/15/19 11:12 Exam: General: Patient is alert, oriented, no acute distress, morbidly obese Head: atraumatic, normocephalic, Eye: normal appearance, PERRL, no scleral icterus, no conjunctival injection ENT: mucous membranes moist, normal external ear exam Neck: normal inspection, trachea midline, full ROM, no carotid bruits Chest: normal inspection, symmetric chest rise Respiratory: Good respiratory effort. Bilateral breath sounds are clear without wheezing, crackles, or rhonchi. Cardiovascular: Regular rate and rhythm. s1 and s2 No clicks, rubs, gallops, or murmors. Abdomen:Has a midline well-healed abdominal scar from previous surgery, bowel sounds are normoactive, soft and less tenderness as compared to yesterday in all quadrants musculoskeletal: Spontaneously moving all extremities. no edema, no calf tenderness Skin: warm, dry, intact. Neuro: Alert and oriented no focal deficit Psych: Patient's affect is normal - Assessment and Plan (1) Ileus, postoperative Current Visit: Yes Status: Acute (2) S/P sinus surgery Current Visit: Yes Status: Acute (3) DVT prophylaxis Current Visit: Yes Status: Acute - Summary of Assessment and Plan Summary of Assessment and Plan: Patient is a 48-year-old female with a history of ulcerative colitis status post colectomy and J-pouch who presents 2 days after sinus surgery with abodminal pain and was fpund to have post op ileus post op ileus: surgery onboard, started on clear liquid diet, IVF, replace electrolytes, pain control, encouraged ambulation, NG tube contraindicated due to recent sinus surgery S/P sinus surgery on Unasyn IV for nasopharygneal coverage post-op. ENT follow up outpatient. morbidly obese BMI 44.3- was counseled, nutrition consult once she is able to tolerate PO intake. DVT prophylaxis: SC heaprin - Time Spent with Patient Total time spent is greater than 50% in coordination of care (as documented) at patient's floor/unit and/or counseling patient: 25 - 35 minutes Internal Medicine: Result - Labs CBC & Chem 7: 01/15/19 04:19 01/15/19 04:19 Labs: Short CBC 01/15/19 Range/Units 04:19 WBC 6.5 (4.3-11.1) K/mcL Hgb 11.6 D (11.5-15.4) g/dL Hct 36.1 (35.3-44.9) % Plt Count 253 (140-400) K/mcL Neutrophils # 3.7 (1.6-8.9) K/mcL BMP 01/15/19 04:19 Sodium 140 Potassium 3.7 Chloride 108 H Carbon Dioxide 24 BUN 9 Creatinine 0.41 L Glucose 99 Calcium 8.7 Liver Function 01/15/19 Range/Units 04:19 Total Bilirubin 0.9 (0.3-1.0) mg/dL AST 29 (13-39) Units/L ALT 52 (7-52) Units/L Alkaline Phosphatase 69 (34-104) Units/L Albumin 3.6 (3.5-5.7) g/dL Consult Discharge Plan - Plan Referrals: Jesi Steward, FABRICATION SUPERVISOR [Primary Care Provider] -
[2019-01-15] MEDS: 0.9 % Sodium Chloride 1,000 ML IVC SCH (13:56)
[2019-01-16] MEDS: 0.9 % Sodium Chloride 1,000 ML IVC SCH ×2 (03:21→17:26)
[2019-01-16] MEDS: Ketorolac 30 MG/ML VIAL IVP SCH ×4 (05:48→23:48)
[2019-01-16] MEDS: *HR* Heparin 5,000 UNIT/ML VIAL SQ SCH ×2 (05:50→17:20)
[2019-01-16] MEDS: Ampicillin/Sulbactam 1,500 MG in 0.9 % Sodium Chloride Mini Bag 100 ML IVPB SCH ×4 (05:52→23:48)
[2019-01-16] MEDS: Pantoprazole 40 MG VIAL IVP SCH (05:52)
[2019-01-16 08:51] LABS: BUN/Creatinine Ratio 19 (6-26); Blood Urea Nitrogen 8 mg/dL (6-20); Calcium 8.6 mg/dL (8.6-10.3); Carbon Dioxide 25 mEq/L (23-29); Chloride 107 mEq/L (98-107); Glucose 92 mg/dL (70-105); Magnesium 1.9 mg/dL (1.6-2.6); Osmolality,Calculated 288 (280-300); Phosphorous 2.8 mg/dL (2.7-4.5); Potassium 3.4 mEq/L (3.5-5.1); Sodium 140 mEq/L (136-145); eGFR For Non-African Americans > 60 (> 60)
--- NOTE | 2019-01-16 11:11 | AcuteCareSurgery Progress Note ---
<Daryl Dodge N - Last Filed: 01/16/19 13:50> Date of Encounter: 01/16/19 Time of Encounter: 11:08 - Assessment and Plan (1) Ileus, postoperative Current Visit: Yes Status: Acute -48-year-old female with a history of UC s/p colectomy who recently underwent sinus surgery and subsequently admitted to the hospital with postoperative ileus -Unable to insert NG tube due to recent sinus surgery -Reports passing gas and liquid stool -Patient's diet was advanced yesterday to clear liquids and patient reports increased abdominal pain with the diet -Will make patient NPO. Acute care surgicery will advance diet as appropriate. -Recommend continuing IV fluid hydration -Plan to order a small bowel follow through in the morning Subjective Narrative: Patient seen and examined at bedside this morning. Her diet was advanced yesterday to clear liquids and patient did not tolerate it well stating she had significant abdominal pain when she tried to sip on soda or eat her broth. Denies any nausea or vomiting with this. Reports continued passage of liquid stool and gas. Objective Vital Signs - Last 8 Hours Temp Pulse Resp BP Pulse Ox 01/16/19 10:44 97.7 F 73 17 136/88 97 01/16/19 06:39 97.9 F 63 18 110/64 97 01/16/19 03:52 98.1 F 88 17 113/70 95 Intake and Output 01/15/19 01/16/19 01/16/19 23:59 07:59 15:59 Intake Total 1820 / 2360 100 / 220 120 / 220 Output Total 400 / 400 Balance 1420 / 1960 100 / 220 120 / 220 Intake: IV Fluids 1100 / 1400 100 / 100 0.9 % Sodium Chloride 1,000 ML 1000 / 1000 @ 100 mls/hr IVC .Q10H [facility] Rx#: [id number] Unasyn 1,500 mg In 0.9 % Sodium 100 / 400 100 / 100 Chloride (Mini-Bag +) 100 ML @ 200 mls/hr IVPB Q6HR [facility] Rx#: [id number] Oral 720 / 960 120 / 120 Output: Urine 400 / 400 Other: Meal Dinner Breakfast Percent of Meal Consumed 80% 30% Weight 117 kg Blood Glucose* 97 96 92 Patient Weight 01/16/19 23:59 Weight 117 kg - General physical appearance well developed, well nourished - Eyes PERRL, normal ocular movement - ENT normal pinna, normal nares - Neck Neck exam: trachea midline, no venous distension - Respiratory normal expansion, normal respiratory effort - Cardiovascular Cardiovascular exam: Present: RRR. Absent: murmurs - Abdomen Abdomen: Present: bowel sounds present, soft, non tender - Labs 01/15/19 04:19 01/16/19 07:55 Diabetes panel 01/16/19 Range/Units 07:55 Sodium 140 (136-145) mEq/L Potassium 3.4 L (3.5-5.1) mEq/L Chloride 107 (98-107) mEq/L Carbon Dioxide 25 (23-29) mEq/L BUN 8 (6-20) mg/dL Creatinine 0.43 L (0.60-1.20) mg/dL Glucose 92 (70-105) mg/dL Calcium 8.6 (8.6-10.3) mg/dL Calcium panel 01/16/19 Range/Units 07:55 Calcium 8.6 (8.6-10.3) mg/dL Phosphorus 2.8 (2.7-4.5) mg/dL Pituitary panel 01/16/19 Range/Units 07:55 Sodium 140 (136-145) mEq/L Potassium 3.4 L (3.5-5.1) mEq/L Chloride 107 (98-107) mEq/L Carbon Dioxide 25 (23-29) mEq/L BUN 8 (6-20) mg/dL Creatinine 0.43 L (0.60-1.20) mg/dL Glucose 92 (70-105) mg/dL Calcium 8.6 (8.6-10.3) mg/dL Adrenal panel 01/16/19 Range/Units 07:55 Sodium 140 (136-145) mEq/L Potassium 3.4 L (3.5-5.1) mEq/L Chloride 107 (98-107) mEq/L Carbon Dioxide 25 (23-29) mEq/L BUN 8 (6-20) mg/dL Creatinine 0.43 L (0.60-1.20) mg/dL Glucose 92 (70-105) mg/dL Calcium 8.6 (8.6-10.3) mg/dL Consult Discharge Plan - Plan Referrals: Jesi Steward, SAP FUNCTIONAL ANALYST [Primary Care Provider] - <Woody Woodard - Last Filed: 01/17/19 06:18> Date of Encounter: 01/16/19 Objective Vital Signs - Last 8 Hours Temp Pulse Resp BP Pulse Ox 01/17/19 04:31 98 F 74 16 117/75 96 01/17/19 00:48 98.8 F 71 16 136/81 97 Intake and Output 01/16/19 01/16/19 01/17/19 15:59 23:59 07:59 Intake Total 1220 / 1520 100 / 1520 1100 / 1100 Balance 1220 / 1520 100 / 1520 1100 / 1100 Intake: IV Fluids 1100 / 1400 100 / 1400 1100 / 1100 0.9 % Sodium Chloride 1,000 ML 1000 / 1000 1000 / 1000 @ 100 mls/hr IVC .Q10H [facility]LL[facility] Rx#: [id number] Unasyn 1,500 mg In 0.9 % Sodium 100 / 400 100 / 400 100 / 100 Chloride (Mini-Bag +) 100 ML @ 200 mls/hr IVPB Q6HR [facility]LL[facility] Rx#: [id number] Oral 120 / 120 0 / 120 Other: Meal NPO NPO Percent of Meal Consumed 0% 0% Stool Size Moderate Stool Consistency liquid liquid Stool Color Brown # Voids 1 2 # Bowel Movements 1 2 Weight 114.2 kg Blood Glucose* 92 83 80 Patient Weight 01/17/19 23:59 Weight 114.2 kg - Labs 01/15/19 04:19 01/16/19 07:55 Diabetes panel 01/16/19 Range/Units 07:55 Sodium 140 (136-145) mEq/L Potassium 3.4 L (3.5-5.1) mEq/L Chloride 107 (98-107) mEq/L Carbon Dioxide 25 (23-29) mEq/L BUN 8 (6-20) mg/dL Creatinine 0.43 L (0.60-1.20) mg/dL Glucose 92 (70-105) mg/dL Calcium 8.6 (8.6-10.3) mg/dL Calcium panel 01/16/19 Range/Units 07:55 Calcium 8.6 (8.6-10.3) mg/dL Phosphorus 2.8 (2.7-4.5) mg/dL Pituitary panel 01/16/19 Range/Units 07:55 Sodium 140 (136-145) mEq/L Potassium 3.4 L (3.5-5.1) mEq/L Chloride 107 (98-107) mEq/L Carbon Dioxide 25 (23-29) mEq/L BUN 8 (6-20) mg/dL Creatinine 0.43 L (0.60-1.20) mg/dL Glucose 92 (70-105) mg/dL Calcium 8.6 (8.6-10.3) mg/dL Adrenal panel 01/16/19 Range/Units 07:55 Sodium 140 (136-145) mEq/L Potassium 3.4 L (3.5-5.1) mEq/L Chloride 107 (98-107) mEq/L Carbon Dioxide 25 (23-29) mEq/L BUN 8 (6-20) mg/dL Creatinine 0.43 L (0.60-1.20) mg/dL Glucose 92 (70-105) mg/dL Calcium 8.6 (8.6-10.3) mg/dL - Attending Attestation I examined this patient and my medical decision-making was reviewed with the Resident Physician. I agree with the documented findings, disposition and treatment plan as described except to the extent set forth below. I personally reviewed the assessment and evaluation mentioned above with the resident and was present during the evaluation and agree with the above plan. The patient was advanced to clear liquid diet by the primary service which she did not tolerate. She started to have some cramping right lower quadrant abdominal pain. She was placed back to nothing by mouth. She states her pain is improved but she is still sore and she does have some tenderness in the right lower quadrant. She is passing gas and having some liquid bowel movements. Because of her previous surgery and the fact we cannot place an NG tube we have to be ultra careful in her diet advancement and we need to do this slowly, unlike patients who have an NG tube placed and can be managed more quickly, therefore we will continue with nothing by mouth today and we will order a small bowel follow-through tomorrow. We need to ensure that her abdomen has plenty of time to resolve this presumed ileus, particularly since we cannot aspirate her bowel contents with an NGT.
--- NOTE | 2019-01-16 11:30 | Internal Med Progress Note ---
Hospitalist Progress Note - Encounter Date of Encounter: 01/16/19 Time of Encounter: 09:15 - Subjective Interval History: Patient was seen and examined at bedside. Reports that she developed abdominal pain with clear liquid diet was started yesterday. I discussed that we will have to stop the by mouth diet for now and will reevaluated once her abdominal pain has subsided. Ports that she has had liquid stools multiple times and is passing flatness. She denies any fever or chills, has had no nausea or vomiting. - Exam Vitals: Temp Pulse Resp BP Pulse Ox 97.7 F 73 17 136/88 97 01/16/19 10:44 01/16/19 10:44 01/16/19 10:44 01/16/19 10:44 01/16/19 10:44 Exam: General: Patient is alert, oriented, no acute distress, morbidly obese Head: atraumatic, normocephalic, Eye: normal appearance, PERRL, no scleral icterus, no conjunctival injection ENT: mucous membranes moist, normal external ear exam Neck: normal inspection, trachea midline, full ROM, no carotid bruits Chest: normal inspection, symmetric chest rise Respiratory: Good respiratory effort. Bilateral breath sounds are clear without wheezing, crackles, or rhonchi. Cardiovascular: Regular rate and rhythm. s1 and s2 No clicks, rubs, gallops, or murmors. Abdomen:Has a midline well-healed abdominal scar from previous surgery, bowel sounds are normoactive, soft and less tenderness as compared to yesterday in all quadrants musculoskeletal: Spontaneously moving all extremities. no edema, no calf tenderness Skin: warm, dry, intact. Neuro: Alert and oriented no focal deficit Psych: Patient's affect is normal - Assessment and Plan (1) Ileus, postoperative Current Visit: Yes Status: Acute (2) S/P sinus surgery Current Visit: Yes Status: Acute (3) DVT prophylaxis Current Visit: Yes Status: Acute - Summary of Assessment and Plan Summary of Assessment and Plan: Patient is a 48-year-old female with a history of ulcerative colitis status post colectomy and J-pouch who presents 2 days after sinus surgery with abodminal pain and was fpund to have post op ileus post op ileus: surgery onboard, nothing by mouth, IVF, replace electrolytes, pain control, encouraged ambulation, NG tube contraindicated due to recent sinus surgery S/P sinus surgery on Unasyn IV for nasopharygneal coverage post-op (was started on Augmentin as outpatient however is unable to tolerate by mouth currently). ENT follow up outpatient. morbidly obese BMI 44.3- was counseled, nutrition consult once she is able to tolerate PO intake. DVT prophylaxis: SC heaprin - Time Spent with Patient Total time spent is greater than 50% in coordination of care (as documented) at patient's floor/unit and/or counseling patient: Internal Medicine: Result - Labs CBC & Chem 7: 01/15/19 04:19 01/16/19 07:55 Labs: BMP 01/16/19 07:55 Sodium 140 Potassium 3.4 L Chloride 107 Carbon Dioxide 25 BUN 8 Creatinine 0.43 L Glucose 92 Calcium 8.6 Consult Discharge Plan - Plan Referrals: Jesi Steward, ANNEALING OVEN OPERATOR [Primary Care Provider] -
[2019-01-17] MEDS: 0.9 % Sodium Chloride 1,000 ML IVC SCH ×2 (00:40→17:58)
[2019-01-17] MEDS: Pantoprazole 40 MG VIAL IVP SCH (06:10)
[2019-01-17] MEDS: Ampicillin/Sulbactam 1,500 MG in 0.9 % Sodium Chloride Mini Bag 100 ML IVPB SCH ×3 (06:10→17:56)
[2019-01-17] MEDS: Ketorolac 30 MG/ML VIAL IVP SCH ×2 (06:10→13:06)
[2019-01-17] MEDS: *HR* Heparin 5,000 UNIT/ML VIAL SQ SCH ×2 (06:11→17:58)
[2019-01-17 07:25] LABS: BUN/Creatinine Ratio 16 (6-26); Blood Urea Nitrogen 6 mg/dL (6-20); Calcium 8.8 mg/dL (8.6-10.3); Carbon Dioxide 21 mEq/L (23-29); Chloride 110 mEq/L (98-107); Glucose 83 mg/dL (70-105); Magnesium 1.8 mg/dL (1.6-2.6); Osmolality,Calculated 289 (280-300); Phosphorous 2.8 mg/dL (2.7-4.5); Potassium 3.4 mEq/L (3.5-5.1); Sodium 141 mEq/L (136-145); eGFR For Non-African Americans > 60 (> 60)
[2019-01-17] MEDS: Ondansetron 4 MG/2 ML VIAL IVP PRN (07:57)
--- NOTE | 2019-01-17 08:30 | AcuteCareSurgery Progress Note ---
<Daryl Dodge N - Last Filed: 01/17/19 08:25> Date of Encounter: 01/17/19 Time of Encounter: 08:25 - Assessment and Plan (1) Ileus, postoperative Current Visit: Yes Status: Acute -48-year-old female with a history of UC s/p colectomy who recently underwent sinus surgery and subsequently admitted to the hospital with postoperative ileus -Unable to insert NG tube due to recent sinus surgery -Increased volume of liquid stool -Recommend continuing NPO and IV fluid hydration -Plan for small bowel follow-through today Subjective Narrative: Patient seen and examined at bedside this morning. Reports increased volume of liquid stool. Tenderness present, but overall abdominal pain has improved. Denies any nausea or vomiting. Objective Vital Signs - Last 8 Hours Temp Pulse Resp BP Pulse Ox 01/17/19 07:32 98.0 F 64 18 117/68 97 01/17/19 04:31 98 F 74 16 117/75 96 01/17/19 00:48 98.8 F 71 16 136/81 97 Intake and Output 01/16/19 01/17/19 01/17/19 23:59 07:59 15:59 Intake Total 100 / 1520 1100 / 1100 Balance 100 / 1520 1100 / 1100 Intake: IV Fluids 100 / 1400 1100 / 1100 0.9 % Sodium Chloride 1,000 ML 1000 / 1000 @ 100 mls/hr IVC .Q10H [facility] Rx#: [id number] Unasyn 1,500 mg In 0.9 % Sodium 100 / 400 100 / 100 Chloride (Mini-Bag +) 100 ML @ 200 mls/hr IVPB Q6HR [facility]IN Rx#: [id number] Oral 0 / 120 0 / 0 Other: Meal NPO Percent of Meal Consumed 0% Stool Consistency liquid # Voids 2 # Bowel Movements 2 Weight 114.2 kg Blood Glucose* 83 80 Patient Weight 01/17/19 23:59 Weight 114.2 kg - General physical appearance well developed, well nourished - Eyes PERRL, normal ocular movement - ENT normal pinna, normal nares - Neck Neck exam: trachea midline, no venous distension - Respiratory normal expansion, normal respiratory effort - Cardiovascular Cardiovascular exam: Present: RRR - Abdomen Abdomen: Present: bowel sounds present, soft, tender (Mild tenderness) - Labs 01/15/19 04:19 01/17/19 06:35 Diabetes panel 01/16/19 01/17/19 Range/Units 07:55 06:35 Sodium 140 141 (136-145) mEq/L Potassium 3.4 L 3.4 L (3.5-5.1) mEq/L Chloride 107 110 H (98-107) mEq/L Carbon Dioxide 25 21 L (23-29) mEq/L BUN 8 6 (6-20) mg/dL Creatinine 0.43 L 0.37 L (0.60-1.20) mg/dL Glucose 92 83 (70-105) mg/dL Calcium 8.6 8.8 (8.6-10.3) mg/dL Calcium panel 01/16/19 01/17/19 Range/Units 07:55 06:35 Calcium 8.6 8.8 (8.6-10.3) mg/dL Phosphorus 2.8 2.8 (2.7-4.5) mg/dL Pituitary panel 01/16/19 01/17/19 Range/Units 07:55 06:35 Sodium 140 141 (136-145) mEq/L Potassium 3.4 L 3.4 L (3.5-5.1) mEq/L Chloride 107 110 H (98-107) mEq/L Carbon Dioxide 25 21 L (23-29) mEq/L BUN 8 6 (6-20) mg/dL Creatinine 0.43 L 0.37 L (0.60-1.20) mg/dL Glucose 92 83 (70-105) mg/dL Calcium 8.6 8.8 (8.6-10.3) mg/dL Adrenal panel 01/16/19 01/17/19 Range/Units 07:55 06:35 Sodium 140 141 (136-145) mEq/L Potassium 3.4 L 3.4 L (3.5-5.1) mEq/L Chloride 107 110 H (98-107) mEq/L Carbon Dioxide 25 21 L (23-29) mEq/L BUN 8 6 (6-20) mg/dL Creatinine 0.43 L 0.37 L (0.60-1.20) mg/dL Glucose 92 83 (70-105) mg/dL Calcium 8.6 8.8 (8.6-10.3) mg/dL Consult Discharge Plan - Plan Referrals: Jesi Steward, SHELVER [Primary Care Provider] - <John Pierre - Last Filed: 01/17/19 15:27> Date of Encounter: 01/17/19 Objective Vital Signs - Last 8 Hours Temp Pulse Resp BP Pulse Ox 01/17/19 10:40 97.8 F 61 17 115/76 97 01/17/19 07:32 98.0 F 64 18 117/68 97 Intake and Output 01/16/19 01/17/19 01/17/19 23:59 07:59 15:59 Intake Total 100 / 1520 1200 / 1300 100 / 1300 Balance 100 / 1520 1200 / 1300 100 / 1300 Intake: IV Fluids 100 / 1400 1200 / 1300 100 / 1300 0.9 % Sodium Chloride 1,000 ML 1000 / 1000 @ 100 mls/hr IVC .Q10H [facility] Rx#: [id number] Unasyn 1,500 mg In 0.9 % Sodium 100 / 400 200 / 200 Chloride (Mini-Bag +) 100 ML @ 200 mls/hr IVPB Q6HR [facility] Rx#: [id number] Potassium Chloride 10 mEq/100mL 100 / 100 10 meq In 100 ml @ 100 mls/hr IVPB Q1H COLLIN Rx#:[id number] Oral 0 / 120 0 / 0 0 / 0 Other: Meal NPO NPO Percent of Meal Consumed 0% 0% Stool Consistency liquid # Voids 2 # Bowel Movements 2 Weight 114.2 kg Blood Glucose* 83 80 78 Patient Weight 01/17/19 23:59 Weight 114.2 kg - Labs 01/15/19 04:19 01/17/19 06:35 Diabetes panel 01/17/19 Range/Units 06:35 Sodium 141 (136-145) mEq/L Potassium 3.4 L (3.5-5.1) mEq/L Chloride 110 H (98-107) mEq/L Carbon Dioxide 21 L (23-29) mEq/L BUN 6 (6-20) mg/dL Creatinine 0.37 L (0.60-1.20) mg/dL Glucose 83 (70-105) mg/dL Calcium 8.8 (8.6-10.3) mg/dL Calcium panel 01/17/19 Range/Units 06:35 Calcium 8.8 (8.6-10.3) mg/dL Phosphorus 2.8 (2.7-4.5) mg/dL Pituitary panel 01/17/19 Range/Units 06:35 Sodium 141 (136-145) mEq/L Potassium 3.4 L (3.5-5.1) mEq/L Chloride 110 H (98-107) mEq/L Carbon Dioxide 21 L (23-29) mEq/L BUN 6 (6-20) mg/dL Creatinine 0.37 L (0.60-1.20) mg/dL Glucose 83 (70-105) mg/dL Calcium 8.8 (8.6-10.3) mg/dL Adrenal panel 01/17/19 Range/Units 06:35 Sodium 141 (136-145) mEq/L Potassium 3.4 L (3.5-5.1) mEq/L Chloride 110 H (98-107) mEq/L Carbon Dioxide 21 L (23-29) mEq/L BUN 6 (6-20) mg/dL Creatinine 0.37 L (0.60-1.20) mg/dL Glucose 83 (70-105) mg/dL Calcium 8.8 (8.6-10.3) mg/dL - Attending Attestation I examined this patient and my medical decision-making was reviewed with the Resident Physician. I agree with the documented findings, disposition and treatment plan as described except to the extent set forth below. The patient is seen and evaluated on morning rounds with the acute care surgery team. She is having multiple liquid bowel movements. We ordered a small bowel follow-through for today. The small bowel follow-through demonstrated contrast through to the J-pouch at 3 hours. No evidence of obstruction. John Pierre MD FACS
[2019-01-17] MEDS ORDERED: E-Z-PAQUE (BARIUM SULF) SUSP 1 BOTTLE PO ONE (12:30)
--- NOTE | 2019-01-17 13:33 | Internal Med Progress Note ---
Hospitalist Progress Note - Encounter Date of Encounter: 01/17/19 Time of Encounter: 08:31 - Subjective Interval History: She was seen and examined at bedside. Reports that she continues to have bowel movements and has abdominal pain associated with the bowel movements. She understands that she will need during nothing by mouth. She is for small bowel follow-through today. She denies any fever, chills, nausea, vomiting overnight. She reports that her Augmentin for recent sinus surgery was started last Thursday and is still and tomorrow on 01/18. - Exam Vitals: Temp Pulse Resp BP Pulse Ox 97.8 F 61 17 115/76 97 01/17/19 10:40 01/17/19 10:40 01/17/19 10:40 01/17/19 10:40 01/17/19 10:40 Exam: General: Patient is alert, oriented, no acute distress, morbidly obese Head: atraumatic, normocephalic, Eye: normal appearance, PERRL, no scleral icterus, no conjunctival injection ENT: mucous membranes moist, normal external ear exam Neck: normal inspection, trachea midline, full ROM, no carotid bruits Chest: normal inspection, symmetric chest rise Respiratory: Good respiratory effort. Bilateral breath sounds are clear without wheezing, crackles, or rhonchi. Cardiovascular: Regular rate and rhythm. s1 and s2 No clicks, rubs, gallops, or murmors. Abdomen:Has a midline well-healed abdominal scar from previous surgery, bowel sounds are normoactive, soft and less tenderness as compared to yesterday in all quadrants musculoskeletal: Spontaneously moving all extremities. no edema, no calf tenderness Skin: warm, dry, intact. Neuro: Alert and oriented no focal deficit Psych: Patient's affect is normal - Assessment and Plan (1) Ileus, postoperative Current Visit: Yes Status: Acute (2) S/P sinus surgery Current Visit: Yes Status: Acute (3) DVT prophylaxis Current Visit: Yes Status: Acute - Summary of Assessment and Plan Summary of Assessment and Plan: Patient is a 48-year-old female with a history of ulcerative colitis status post colectomy and J-pouch who presents 2 days after sinus surgery with abodminal pain and was fpund to have post op ileus post op ileus: surgery onboard, nothing by mouth, IVF, replace electrolytes, pain control, encouraged ambulation, NG tube contraindicated due to recent sinus surgery for small bowel follow-through today S/P sinus surgery on Unasyn IV for nasopharygneal coverage post-op (was started on Augmentin as outpatient however is unable to tolerate by mouth currently). ENT follow up outpatient. Last day for antibiotic is 01/18 morbidly obese BMI 44.3- was counseled, nutrition consult once she is able to tolerate PO intake. Hypokalemia: Replace magnesium is 1.8 DVT prophylaxis: SC heparin - Time Spent with Patient Total time spent is greater than 50% in coordination of care (as documented) at patient's floor/unit and/or counseling patient: 25 - 35 minutes Plan of Care Discussed with: patient Internal Medicine: Result - Labs CBC & Chem 7: 01/15/19 04:19 01/17/19 06:35 Labs: BMP 01/17/19 06:35 Sodium 141 Potassium 3.4 L Chloride 110 H Carbon Dioxide 21 L BUN 6 Creatinine 0.37 L Glucose 83 Calcium 8.8 - Impressions Impressions Abdomen/Pelvis CT 01/13/19 19:45 IMPRESSION: 1. Postoperative changes of colectomy. Findings are suspicious for a partial distal small-bowel obstruction. 2. Trace ascites and mild mesenteric edema, which is nonspecific. 3. Urine in the bladder appears hyperdense, which can be seen with hematuria. D/ / 01/13/2019 21:47:23 Dada Vizcaino MD / marilyn Interpreting Provider: Dada Vizcaino MD Small Bowel X-Ray 01/17/19 06:28 IMPRESSION: Barium contrast is noted within the rectum at 3 hours. No convincing evidence of high-grade or complete bowel obstruction. Multiple dilated bowel loops within abdomen and pelvis. Possibility of ileus or partial obstruction is not excluded. Correlate with symptoms. D/ / 01/17/2019 12:44:48 Evan Darby MD / Ángela Davis Interpreting Provider: Evan Darby MD Consult Discharge Plan - Plan Referrals: Jesi Steward, LEAD GENERATION REPRESENTATIVE [Primary Care Provider] -
--- NOTE | 2019-01-17 15:31 | Event Note ---
Date of Encounter: 01/17/19 Time of Encounter: 15:31 No obstruction noted on small bowel follow-throughs. We will try clear liquid diet and assess for response, avoid carbonated drinks.
[2019-01-18] MEDS: 0.9 % Sodium Chloride 1,000 ML IVC SCH ×3 (00:46→12:01)
[2019-01-18] MEDS: Ampicillin/Sulbactam 1,500 MG in 0.9 % Sodium Chloride Mini Bag 100 ML IVPB SCH ×3 (00:47→12:01)
[2019-01-18] MEDS ORDERED: Acetaminophen 325 MG TABLET PO PRN (04:34)
[2019-01-18] MEDS: *HR* Heparin 5,000 UNIT/ML VIAL SQ SCH ×2 (05:39→17:19)
[2019-01-18] MEDS: Pantoprazole 40 MG VIAL IVP SCH (05:40)
--- NOTE | 2019-01-18 07:53 | Event Note ---
<Daryl Dodge N - Last Filed: 01/18/19 07:51> Date of Encounter: 01/18/19 Time of Encounter: 07:51 No obstruction noted on small bowel follow-throughs. Advance diet as tolerated. Acute care surgery will sign off. <Lakisha Morton F - Last Filed: 01/18/19 11:10> Date of Encounter: 01/18/19 I examined this patient and my medical decision-making was reviewed with the Resident Physician. I agree with the documented findings, disposition and treatment plan as described except to the extent set forth below.
[2019-01-18 07:58] LABS: BUN/Creatinine Ratio 13 (6-26); Blood Urea Nitrogen 5 mg/dL (6-20); Calcium 8.9 mg/dL (8.6-10.3); Carbon Dioxide 22 mEq/L (23-29); Chloride 106 mEq/L (98-107); Glucose 75 mg/dL (70-105); Osmolality,Calculated 280 (280-300); Potassium 3.6 mEq/L (3.5-5.1); Sodium 137 mEq/L (136-145); eGFR For Non-African Americans > 60 (> 60)
[2019-01-18] MEDS ORDERED: *HR* OxyCODONE Immed Rel 5 MG TABLET PO PRN (11:58)
--- NOTE | 2019-01-18 12:32 | Internal Med Progress Note ---
Hospitalist Progress Note - Encounter Date of Encounter: 01/18/19 Time of Encounter: 08:30 - Subjective Interval History: Patient was seen and examined at bedside. Reports that she did tolerate liquids diet that was started by surgery yesterday however does still complain of abdominal pain. She denies any nausea or vomiting after she drank the clear li quid however did have some postprandial abdominal pain. She denies fever or chills. Discussed that today will be the last day of her antibiotics as it was prescribed by ENT. det was advance by surgery and will see how she tolerated diet. no overnight events has had no fever or chills or chest pain - Exam Vitals: Temp Pulse Resp BP Pulse Ox 97.8 F 54 16 124/77 98 01/18/19 10:38 01/18/19 10:38 01/18/19 10:38 01/18/19 10:38 01/18/19 10:38 Exam: General: Patient is alert, oriented, no acute distress, morbidly obese Head: atraumatic, normocephalic, Eye: normal appearance, PERRL, no scleral icterus, no conjunctival injection ENT: mucous membranes moist, normal external ear exam Neck: normal inspection, trachea midline, full ROM, no carotid bruits Chest: normal inspection, symmetric chest rise Respiratory: Good respiratory effort. Bilateral breath sounds are clear without wheezing, crackles, or rhonchi. Cardiovascular: Regular rate and rhythm. s1 and s2 No clicks, rubs, gallops, or murmors. Abdomen:Has a midline well-healed abdominal scar from previous surgery, bowel sounds are normoactive, soft and less tenderness as compared to yesterday in all quadrants musculoskeletal: Spontaneously moving all extremities. no edema, no calf tenderness Skin: warm, dry, intact. Neuro: Alert and oriented no focal deficit Psych: Patient's affect is normal - Assessment and Plan (1) Ileus, postoperative Current Visit: Yes Status: Acute (2) S/P sinus surgery Current Visit: Yes Status: Acute (3) DVT prophylaxis Current Visit: Yes Status: Acute - Summary of Assessment and Plan Summary of Assessment and Plan: Patient is a 48-year-old female with a history of ulcerative colitis status post colectomy and J-pouch who presents 2 days after sinus surgery with abodminal pain and was fpund to have post op ileus post op ileus: surgery onboard- small bowel follow through without obstruction. advance diet as tolerated. S/P sinus surgery : transitioned to Augmentin as she has tolerated liquids. to continue for one moreday. ENT follow up outpatient. morbidly obese BMI 44.3- was counseled, nutrition consult once she is able to tolerate PO intake. Hypokalemia: Replaced and resolved magnesium is 1.8 DVT prophylaxis: SC heparin possible discharge on 01/19 if pain has resolved and she tolerated Advance diet - will need follow up with ENt as OP. - Time Spent with Patient Total time spent is greater than 50% in coordination of care (as documented) at patient's floor/unit and/or counseling patient: 25 - 35 minutes Plan of Care Discussed with: patient Internal Medicine: Result - Labs CBC & Chem 7: 01/15/19 04:19 01/18/19 07:08 Labs: BMP 01/18/19 07:08 Sodium 137 Potassium 3.6 Chloride 106 Carbon Dioxide 22 L BUN 5 L Creatinine 0.39 L Glucose 75 Calcium 8.9 - Impressions Impressions Small Bowel X-Ray 01/17/19 06:28 IMPRESSION: 1. Barium contrast within rectum at 3 hours. No convincing evidence of high-grade or complete bowel obstruction. 2. Multiple dilated bowel loops within abdomen and pelvis. Possibility of ileus or partial obstruction is not excluded. Correlate with continued symptoms. D/ / 01/17/2019 12:44:48 Evan Darby MD / Ángela Davis Interpreting Provider: Evan Darby MD Consult Discharge Plan - Plan Referrals: Jesi Steward, EXCELSIOR MACHINE FEEDER [Primary Care Provider] -
[2019-01-19] MEDS: *HR* Heparin 5,000 UNIT/ML VIAL SQ SCH (05:48)
--- NOTE | 2019-01-19 10:06 | Discharge Summary ---
- NOTES TO OUTPATIENT PROVIDER Notes to Outpatient Provider: Follow with ENT and GI as an outpatient Date of Encounter: 01/19/19 Time of Encounter: 07:45 - Discharge Diagnosis (1) Ileus, postoperative Priority: Primary Status: Acute (2) S/P sinus surgery Priority: Secondary Status: Acute (3) DVT prophylaxis Priority: Secondary Status: Acute Hospital course: Ms. Lyon is a 48 year old female with history of ulcerative colitis status post colectomy and J-pouch, recent sinus surgery, who was admitted for post-op ileus. Managed in consultation with acute care surgery; although initial CT showed findings suspicious for partial distal small bowel obstruction, small bowel follow-through was negative for any high-grade obstruction. She was able to tolerate diet and have BM prior to discharge. Patient also completed her course of oral Augmentin post sinus surgery during her stay. Discharge discussed with: patient, nurse - Time Spent with Patient Total time spent providing and/or coordinating discharge services: 31 mins - Discharge Medications Prescriptions: Continued Montelukast [Singulair] 10 mg PO DAILY Fluticasone Propionate Nasal [Flonase] 1 spr NS BID PRN PRN Reason: Allergy Symptoms Discontinued Amoxicillin [Amoxil] 500 mg PO BID #14 capsule Home Medications: Fluticasone Propionate Nasal [Flonase] 1 spr NS BID PRN 10/11/18 [History] Montelukast [Singulair] 10 mg PO DAILY 10/11/18 [History] Allergies/Adverse Reactions: Allergy/AdvReac Type Severity Reaction Status Date / Time No Known Allergies Allergy Verified 01/13/19 22:26 Date of admission: 01/14/19 08:22 Primary care physician: Jesi Steward CNP Consults: 01/14/19 04:59 Consult to Physician [CONS] Routine Consulting Provider: John Pierre Reason for Consult: PSBO/ileus Call Completed: Yes 01/15/19 12:59 Consult to Nutrition [CONS] Routine Comment: Consulting Provider: NUTRITION Reason for Dietary Consult: PO Supplementation - Constitutional Vitals: Temp Pulse Resp BP Pulse Ox 98.4 F 59 18 128/75 94 01/19/19 06:37 01/19/19 06:37 01/19/19 06:37 01/19/19 06:37 01/19/19 06:37 General appearance: Present: cooperative, mild distress, A&O X 3, pleasant, answers questions appropriately Exam: General: Patient is alert, oriented, no acute distress, morbidly obese Respiratory: Good respiratory effort. Bilateral breath sounds are clear without wheezing, crackles, or rhonchi. Cardiovascular: Regular rate and rhythm. s1 and s2 No clicks, rubs, gallops, or murmors. Abdomen: Soft, minimal generalized tenderness. Has a midline well-healed abdominal scar from previous surgery, bowel sounds active Neuro: Alert and oriented no focal deficit - Patient Status Disposition: Home, Self-Care Condition: Fair Functional capacity at discharge: independent ambulation Overall status at discharge: patient is progressing back to baseline - Discharge Instructions Follow Up With: Jesi Steward DRY KILN FEEDER [Primary Care Provider] - - Diet and Activity Activity: resume usual activities as tolerated Diet: advance to your usual diet
[2019-01-19 10:46] VITALS: BP 126/80
== END 2019-01-19 14:09 | disposition home or self-care (01) | DRG 394 ==
LOC: 2ANU 18:48 → EMEROOARM 18:48 → 2ANU 22:58 → SUATTDRO 01-14 08:22
PROVIDERS: ADMIT Family Medicine; ATTEND Internal Medicine